=== PATIENT | male | born 1965 | race Caucasian/White ===

== ENCOUNTER 2017-01-17 22:34 | Emergency (ER) | payer SELFPAY ==
[~2017-01-17] VITALS: Ht 180.3 cm; Wt 86.2 kg
[2017-01-17 22:37] VITALS: BP 157/91
[2017-01-18] MEDS ORDERED: methylPREDNISolone SOD SUCC PF 125 MG/2 ML VIAL. IM ONE (00:15)
[2017-01-18 00:50] LABS: POTASSIUM ISTAT 3.5 mmol/L (3.5-5.0)
[2017-01-18] MEDS ORDERED: PRED50TA PO (01:14)
--- NOTE | 2017-01-18 01:14 | PHYS DOC ---
Past Medical History Past Medical History: No Pertinent History Past Surgical History: No Surgical History Additional Information: 1 PPD Alcohol Use: Occasionally Drug Use: Cocaine Adult General Chief Complaint Chief Complaint: SKIN PROBLEM HPI HPI 81-year-old male complaining of scaly itchy rash for 6 months. He came to the emergency department tonight because "enough is enough. "He has no fevers chills sweats or shaking chills. Denies pain. There are no new symptoms Review of Systems Review of Systems Constitutional: Denies fever or chills [] Eyes: Denies change in visual acuity, redness, or eye pain [] HENT: Denies nasal congestion or sore throat [] Respiratory: Denies cough or shortness of breath [] Cardiovascular: No additional information not addressed in HPI [] GI: Denies abdominal pain, nausea, vomiting, bloody stools or diarrhea [] : Denies dysuria or hematuria [] Musculoskeletal: Denies back pain or joint pain [] Integument: Denies rash or skin lesions [] Neurologic: Denies headache, focal weakness or sensory changes [] Endocrine: Denies polyuria or polydipsia [] All other systems were reviewed and found to be within normal limits, except as documented in this note. Current Medications Current Medications Current Medications Medications (Trade) Dose Ordered Sig/Dominique Start Time Stop Time Status Last Admin Dose Admin Methylprednisolone Sodium Succinate (SOLU-Medrol 125MG VIAL) 125 mg 1X ONCE 01/18/17 00:15 01/18/17 00:16 DC 01/18/17 00:17 125 MG Allergies Allergies Allergies Coded Allergies Type Severity Reaction Last Updated Verified No Known Drug Allergies 01/17/17 No Physical Exam Physical Exam Well-appearing patient with scattered faintly white/silvery scaly rash and low back and upper buttock distribution. No crepitus or fluctuance. It's nontender. Chronic appearance. Clear lungs regular rhythm with no tachycardia. Patient is benign appearing clinically Constitutional: Well developed, well nourished, no acute distress, non-toxic appearance. [] HENT: Normocephalic, atraumatic, bilateral external ears normal, oropharynx moist, no oral exudates, nose normal. [] Eyes: PERRLA, EOMI, conjunctiva normal, no discharge. [] Neck: Normal range of motion, no tenderness, supple, no stridor. [] Cardiovascular:Heart rate regular rhythm, no murmur [] Lungs & Thorax: Bilateral breath sounds clear to auscultation [] Abdomen: Bowel sounds normal, soft, no tenderness, no masses, no pulsatile masses. [] Skin: Warm, dry, no erythema, rash as above Back: No tenderness, no CVA tenderness. [] Extremities: No tenderness, no cyanosis, no clubbing, ROM intact, no edema. [] Neurologic: Alert and oriented X 3, normal motor function, normal sensory function, no focal deficits noted. [] Psychologic: Affect normal, judgement normal, mood normal. [] Current Patient Data Vital Signs Vital Signs Date Time Temp Pulse Resp B/P (MAP) Pulse Ox O2 Delivery O2 Flow Rate FiO2 01/17/17 22:37 97.5 96 16 157/91 (113) 99 Room Air 97.5 Lab Values Laboratory Tests Test 01/18/17 00:41 POC Hemoglobin 13.9 g/dL (14-18) L POC Hematocrit 41 % (37-52) POC Sodium 140 mmol/L (135-145) POC Potassium 3.5 mmol/L (3.5-5.0) POC Chloride 102 mmol/L (98-110) POC Total CO2 25 mmol/L (23-32) Anion Gap 17 mmol/L (6-14) H POC Blood Urea Nitrogen 14 mg/dL (8-26) POC Creatinine 1.0 mg/dL (0.5-1.4) Glucose Level 93 mg/dL (70-99) POC Ionized Calcium (Tomi) 1.13 mmol/L (1.13-1.32) Laboratory Tests 01/18/17 00:41 EKG EKG [] Radiology/Procedures Radiology/Procedures [] Course & Med Decision Making Course & Med Decision Making Pertinent Labs and Imaging studies reviewed. (See chart for details) Enzymes and symptoms consistent with chronic rash, clearly not in acute process. Mild pruritus. No evidence of bacterial superinfection. No crepitus or fluctuance. Patient has a benign exam. Steroids given and prescribed. He is where follow-up with primary care doctor as well as a well logging operator mud analysis for definitive diagnosis and treatment as needed. No further workup or treatment indicated. Patient agrees with outpatient follow-up and strict return precautions given [] Dragon Disclaimer Dragon Disclaimer This electronic medical record was generated, in whole or in part, using a voice recognition dictation system. Departure Departure Impression: Primary Impression: Rash Disposition: 01 HOME, SELF-CARE Condition: IMPROVED Referrals: NO PCP (PCP) Patient Instructions: Rash Additional Instructions: You have a chronic rash with itching. Finish prednisone as prescribed once a day for 6 days. Take Benadryl one or 2 pills every 4-6 hours as needed for itching. Follow-up with your doctor in with a well logging operator mud analysis for further workup definitive diagnosis and continued treatment Scripts Prednisone (PREDNISONE) 50 Mg Tablet 1 TAB PO DAILY, #6 TAB Prov: TIA CERVANTES MD 01/18/17 TIA CERVANTES MD Jan 18, 2017 01:14
== END 2017-01-18 01:26 | disposition home or self-care (01) ==
LOC: ER 22:34
DX: R21 Rash and other nonspecific skin eruption (principal); F17.200 Nicotine dependence, unspecified, uncomplicated
CPT/HCPCS: 36415; 80047; 85014; 85018; 96372; 99283; J2930